=== PATIENT | male | born 1970 | race Caucasian/White ===

== ENCOUNTER 2017-07-05 15:40 | Emergency (ER) | payer OTHER ==
[~2017-07-05] VITALS: Wt 95.3 kg
== END 2017-07-05 18:21 | disposition left against medical advice (07) ==
LOC: ED 15:40
DX: S82.841A Displaced bimalleolar fracture of right lower leg, initial encounter for closed fracture (principal); W01.0XXA Fall on same level from slipping, tripping and stumbling without subsequent striking against object, initial encounter; Y93.89 Activity, other specified; Y92.89 Other specified places as the place of occurrence of the external cause; Y99.9 Unspecified external cause status